=== PATIENT | male | born 1965 | race American Indian/Alaskan Native ===

== ENCOUNTER 2017-10-23 20:01 | Inpatient (IN) | payer MEDICAID ==
[2017-10-23 20:02] VITALS: BMI 31.5
--- NOTE | 2017-10-23 22:09 | C.PDOC ---
History Of Present Illness 52 year old male presents to the emergency department after being brought in by [facility]. Patient states that he feels as if he is withdrawing from heroin, which he last used at 9AM today. Patient is requesting detox. Chief Complaint (Nursing): Medical Clearance History Per: Patient, EMS History/Exam Limitations: no limitations Onset/Duration Of Symptoms: Hrs Current Symptoms Are (Timing): Still Present Past Medical History Reviewed: Historical Data, Nursing Documentation, Vital Signs Vital Signs: Last Vital Signs Temp 97.7 F 10/26/17 16:52 Pulse 80 10/26/17 16:52 Resp 18 10/26/17 16:52 BP 125/83 10/26/17 16:52 Pulse Ox 98 10/26/17 20:03 - Medical History PMH: Asthma, Hypercholesterolemia, Kidney Stones Denies: Chronic Kidney Disease Surgical History: No Surg Hx Family History: States: Unknown Family Hx - Social History Hx Tobacco Use: No Hx Alcohol Use: Yes Hx Substance Use: Yes - Immunization History Hx Tetanus Toxoid Vaccination: No Hx Influenza Vaccination: No Hx Pneumococcal Vaccination: No Review Of Systems Except As Marked, All Systems Reviewed And Found Negative. Neurological: Positive for: Other (under the influence) Physical Exam - Physical Exam Appears: Non-toxic, No Acute Distress Cardiovascular: Rhythm Regular Respiratory: Normal Breath Sounds Gastrointestinal/Abdominal: Normal Exam, Soft, No Tenderness ED Course And Treatment - Laboratory Results Result Diagrams: 10/23/17 21:51 10/23/17 21:51 O2 Sat by Pulse Oximetry: 98 (RA) Pulse Ox Interpretation: Normal Medical Decision Making Medical Decision Making: Plan: Alcohol Serum CMP CBC Glucose POC Urinalysis Disposition Discussed With DrElisa: Josef Chavez Doctor Will See Patient In The: Hospital Counseled Patient/Family Regarding: Diagnosis - Disposition Disposition: HOSPITALIZED Disposition Time: 04:30 Condition: STABLE - POA Present On Arrival: None - Clinical Impression Clinical Impression: Opiate addiction, Alcohol abuse - Scribe Statement The provider has reviewed the documentation as recorded by the Scribe (Yobany Rubio) Provider Attestation: All medical record entries made by the Scribe were at my direction and personally dictated by me. I have reviewed the chart and agree that the record accurately reflects my personal performance of the history, physical exam, medical decision making, and the department course for this patient. I have also personally directed, reviewed, and agree with the discharge instructions and disposition.
[2017-10-23 22:14] LABS: BASO % 0.5 % (0.0-2.0); EOS # 0.2 K/uL (0.0-0.7); EOS % 2.8 % (0.0-4.0); HEMOGLOBIN 11.9 g/dL (12.0-18.0); LYMPH # 0.7 K/uL (1.0-4.3); LYMPH % 9.7 % (20.0-40.0); MEAN CELL VOLUME 94.3 fL (80.0-94.0); MEAN CORPUSCULAR HEMOGLOBIN 32.2 pg (27.0-31.0); MEAN CORPUSCULAR HGB CONC 34.1 g/dL (33.0-37.0); MEAN PLATELET VOLUME 7.4 fL (7.2-11.7); MONO # 0.4 K/uL (0.0-0.8); MONO % 5.5 % (0.0-10.0); NEUT # 6.2 K/uL (1.8-7.0); NEUT % 81.5 % (50.0-75.0); PLATELET COUNT 231 K/uL (130-400); RBC 3.69 Mil/uL (4.40-5.90); RED CELL DISTRIBUTION WIDTH 13.9 % (11.5-14.5)
[2017-10-23 22:15] LABS: WHITE BLOOD COUNT 7.6 K/uL (4.8-10.8)
[2017-10-23 22:16] LABS: ALB/GLOB RATIO 1.1 (1.0-2.1); ALBUMIN 4.2 g/dL (3.5-5.0); ALT/SGPT 71 U/L (21-72); AST/SGOT 47 U/L (17-59); BLOOD UREA NITROGEN 16 mg/dL (9-20); CALCIUM 9.5 mg/dl (8.6-10.4); GFR AFRICAN-AMERICAN > 60; GFR NON-AFRICAN AMERICAN > 60
[2017-10-23 22:21] LABS: SQUAMOUS EPITHIAL < 1 /hpf (0-5); URINE BILIRUBIN NEGATIVE (NEGATIVE); URINE BLOOD NEGATIVE (NEGATIVE); URINE CLARITY Clear (Clear); URINE COLOR Straw (YELLOW); URINE GLUCOSE (UA) NORMAL (Normal); URINE LEUKOCYTE ESTERASE NEG Leu/uL (Negative); URINE PROTEIN NEGATIVE (NEGATIVE); URINE UROBILINOGEN NORMAL mg/dL (0.2-1.0)
[2017-10-23 22:33] LABS: BARBITURATES, UR NEGATIVE (NEGATIVE); PHENCYCLIDINE, UR NEGATIVE (NEGATIVE)
[2017-10-23 22:35] LABS: BENZODIAZEPINES, UR POSITIVE (NEGATIVE); OPIATES, UR POSITIVE (NEGATIVE)
[2017-10-23 22:54] LABS: EOSINOPHIL 2 % (0-4); MONOCYTE 5 % (0-10); NEUTROPHIL 84 % (50-75); TOTAL CELLS COUNTED 100
[2017-10-23 22:55] LABS: HYPOCHROMIC SLIGHT; LYMPHOCYTE 9 % (20-40); PLATELET ESTIMATE NORMAL (NORMAL)
--- NOTE | 2017-10-24 05:00 | PCM.BM ---
<Ewa Matt M - Last Filed: 10/24/17 04:59> Treatment Plan Problems - Problems identified on initial assessmt Ineffective Coping Skills Date Initiated: 10/24/17 Time Initiated: 05:00 Assessment reference: NA Status: Active Treatment assets and liabiliti Patient Assests: ADL independent Patient Liabilities: substance abuse - Milieu Protocol Maintain good personal hygiene: daily Encourage regular showers, daily Remind patient to perform daily oral care, other Assist patient to perform ADL's Maintain personal safety: every shift Educate patient to report safety concerns to staff, every shift Monitor environment for contraband/sharps Medication safety: Monitor for expected outcome, potential side effects: every shift, Assess barriers to learning: every shift, Assess readiness for medication education: every shift <Levi Villarreal M - Last Filed: 10/24/17 19:43> - Diagnosis (1) Opioid use disorder, severe, dependence Status: Acute Interventions: 10/24/17 19:43 10/24/17 16:56 Educate regarding risks, benefits, side effects and alternatives of medications * Use Motivational Interviewing for abstinence * Use CBT for relapse prevention * Medication management for withdrawal symptoms * Encourage medication assisted treatment (2) Alcohol use disorder, severe, dependence Status: Acute Interventions: 10/24/17 19:43 10/24/17 16:56 Educate regarding risks, benefits, side effects and alternatives of medications * Use Motivational Interviewing for abstinence * Use CBT for relapse prevention * Medication management for withdrawal symptoms * Encourage medication assisted treatment (3) Sedative, hypnotic or anxiolytic use disorder, moderate, in controlled environment Status: Acute Interventions: 10/24/17 19:43 10/24/17 16:56 Educate regarding risks, benefits, side effects and alternatives of medications * Use Motivational Interviewing for abstinence * Use CBT for relapse prevention * Medication management for withdrawal symptoms * Encourage medication assisted treatment
[2017-10-24] MEDS: Multiple Vitamins Tab PO SCH (11:35)
[2017-10-24] MEDS ORDERED: Buprenorphine Hydrochloride 2 mg SL ONE ×2 (17:06→18:30)
--- NOTE | 2017-10-24 19:54 | PCM.PSYCH ---
Initial Psychiatric Evaluation - Initial Psychiatric Evaluation Type of Admission: Voluntary Legal Status: Capacity Chief Complaint (in patient's own words): I need help for my substance use. History of Present Illness and Precipitating Events: Patient is a 52 years old, single, employed as a kitchen chef, -[place] male with no psychiatric history was admitted for the treatment of withdrawing from alcohol, heroin and Xanax. Alcohol: Started at 13 years of age, was drinking fifth of wine and 3, 24 ounces cans of beer daily. His last use was yesterday. His longest period of abstinence was 3 years from [id number]. He has history of 3 detox and one rehabilitation at [facility]. Next Heroin: Started at 14 years of age, increased gradually up to 10 bags daily. Currently he was using 10 bags daily, sniffing. Last used yesterday. Xanax: Started 1 years ago, using once take age of 2 mg daily. Last used yesterday. His urine drug screen was positive for cocaine. Patient denied. Patient has history of right leg surgery. He was arrested in the past for selling drugs. Patient was born in [place], has high school graduation. Patient is working as a kitchen chef. He is single and has 1 grown up daughter. He lives with his mother. His height is 5 feet 10 inches and weight is 205 pounds. Current Medications: Active Medications Generic Name Dose Route Start Last Admin Trade Name Freq PRN Reason Stop Dose Admin Albuterol 1 puff 10/24/17 04:52 Ventolin Hfa 90 Mcg/Actuation (8 G) INH RQ6 PRN Shortness of Breath Chlordiazepoxide 25 mg 10/24/17 08:32 10/24/17 08:47 Librium PO 25 mg Q6 PRN Administration Alcohol withdrawal Chlordiazepoxide 25 mg 10/24/17 12:00 10/24/17 17:01 Librium PO 10/28/17 11:59 25 mg Q6 AURA Administration Taper Clonidine HCl 0.1 mg 10/24/17 04:49 10/24/17 05:49 Catapres PO 0.1 mg Q8H PRN Administration Withdrawal Symptoms Dicyclomine HCl 20 mg 10/24/17 11:26 Bentyl PO Q6 PRN aBDOMINAL cRAMPS Folic Acid 1 mg 10/24/17 11:30 10/24/17 11:35 Folic Acid PO Not Given DAILY [facility] Gabapentin 400 mg 10/24/17 14:00 10/24/17 17:01 Neurontin PO 400 mg TID AURA Administration Hydroxyzine HCl 25 mg 10/24/17 04:49 10/24/17 05:49 Atarax PO 25 mg Q6H PRN Administration Agitation Multivitamins 1 tab 10/24/17 11:30 10/24/17 11:35 Hexavitamin PO Not Given DAILY [facility] Ondansetron HCl 4 mg 10/24/17 04:50 10/24/17 05:49 Zofran Odt PO 4 mg Q8H PRN Administration Nausea/Vomiting Thiamine HCl 100 mg 10/24/17 11:30 10/24/17 11:35 Vitamin B1 Tab PO Not Given DAILY AURA Trazodone HCl 50 mg 10/24/17 04:51 Desyrel PO HS PRN Insomnia Past Psychiatric History - Past Psychiatric History Previous Treatment History: Inpatient Prior Professional Help: History of 3 detox and one rehabilitation History of Abuse: None reported History of ETOH/Drug Use: See HPI History of Family Illness: Reported on of his brother uses alcohol, heroin and Xanax. Pertinent Medical Hx (Current Medical&Sleep Prob, Allergies): Allergies Allergy/AdvReac Type Severity Reaction Status Date / Time No Known Allergies Allergy Verified 10/23/17 20:25 Ibuprofen [Motrin Tab] 800 mg PO Q8H PRN #24 tab 06/29/16 Albuterol HFA [Ventolin HFA 90 mcg/actuation (8 g)] 1 puff IH Q4H PRN 07/16/16 Cyclobenzaprine [Flexeril] 5 mg PO Q8 PRN #20 tab 07/16/16 Naproxen 500 mg PO BID PRN #30 tab 07/16/16 Amoxicillin/Clavulanate [Augmentin 875 MG-125 MG] 1 tab PO BID #20 tab 07/21/16 Fluticasone Propionate [Flonase Allergy Relief] 1 spray NS DAILY #1 spray.susp 07/21/16 Ibuprofen [Motrin] 600 mg PO QID PRN #24 tab 07/21/16 Loratadine/Pseudoephedrine [Claritin-D 24 Hour Tablet] 1 each PO DAILY #7 tab.er.24h 07/21/16 Cephalexin [cephalexin] 500 mg PO QID #20 cap 12/26/16 Amoxicillin/Clavulanate [Augmentin 875 MG-125 MG] 1 tab PO BID #20 tab 05/13/17 Famotidine [Pepcid] 40 mg PO DAILY #15 tab 05/13/17 Loratadine/Pseudoephedrine [Claritin-D 24 Hour Tablet] 1 each PO DAILY #30 tab.er.24h 05/13/17 Asthma Hypercholesterinemia Review of Systems - Psychiatric Psychiatric: As Per [facility] Mental Status Examination - Personal Presentation Personal Presentation: Looks stated age - Affect Affect: Depressed - Motor Activity Motor Activity: Calm - Reliability in Providing Information Reliability in Providing Information: Fair - Speech Speech: Organized - Mood Mood: Depressed - Formal Thought Process Formal Thought Process: No Impairment - Hallucinations/Delusions Hallucinations: Other (None reported) Delusions: Other - Obsessions/Compulsions Obsessions: None Compulsions: None - Cognitive Functions Orientation: Person, Place, Situation, Time Sensorium: Alert Attention/Concentration: Attentive Abstract Thinking: [place] Estimate of Intelligence: Average Judgement: Intact, as evidence by: Insight regarding need for hospitalization Memory: Recent intact, as evidence by: 3/3 object recall, Remote intact, as evidenced by: Ability to recall historical events - Risk Risk: Withdrawal, Diminished functioning - Strength & Assets Inventory Strength & Assets Inventory: Education, Employment status, Cooperative - Limitations Limitations: Other DSM 5 DX - DSM 5 DSM 5 Diagnosis: Alcohol use disorder severe Opiate use disorder severe Anxiolytics use disorder moderate - Recommended/Plan of Treatment Treatment Recommendations and Plan of Treatment: Patient education. Supportive therapy. CBT for relapse prevention. [place] for abstinence. We'll start Librium detox protocol for alcohol and Xanax withdrawal symptoms. We'll start Subutex 4 heroin withdrawal symptoms. Other when necessary medications. Projected ELOS: 4-5 days Discharge Plan and Discharge Criteria: [facility] after discharge from the hospital. - Smoking Cessation Smoking Cessation Initiated: No Reason for not providing: Patient doesn't smoke cigarettes
[2017-10-25] MEDS: Multiple Vitamins Tab PO SCH (09:15)
[2017-10-25] MEDS: Buprenorphine Hydrochloride 2 mg SL SCH (09:15)
--- NOTE | 2017-10-25 12:49 | PCM.PYCHPN ---
Psychiatric Progress Note - Psychiatric Progress Note Patient seen today, length of contact: 16 minutes Patient Chief Complaint: "OK" Problems Identified/Issues Discussed: The pt is seen, chart reviewed, case discussed with staff. The pt is compliant with medications and reports no side-effects. Symptoms are improving but needs more time to stabilize. After care discussed, support and psychoeducation given. Medication Change: Yes (Detox changes daily) Medical Record Reviewed: Yes Mental Status Examination - Cognitive Function Orientation: Person, Place, Situation, Time Memory: Intact Attention: WNL Concentration: WNL Association: WNL Fund of Knowledge: WNL - Mood Mood: Depressed - Affect Affect: Broad, Depressed - Speech Speech: Appropriate - Formal Thought Process Formal Thought Process: No Impairment - Suicidal Ideation Suicidal Ideation: No - Homicidal Ideation Homicidal Ideation: No Goal/Treatment Plan - Goal/Treatment Plan Need for Continued Stay: Discharge may exacerbated symptoms, Severe functional impairment Progress Toward Problem(s) and Goals/Treatment Plan: Continue detox As needed medications Gabapentin for augmentation if needed All risks, benefits and alternatives of medications, including no medications, discussed and the patient understood and agreed. Attend groups and activities Supportive therapy and psychoeducation [place] for abstinence CBT for relapse prevention Encourage MAT Refer to rehab or IOP Attend self-help groups as well [place] for smoking cessation and patch if needed
[2017-10-25] MEDS ORDERED: Bacitracin Ointment 30 GM TUBE TOP PRN (15:55)
[2017-10-25] MEDS: Albuterol HFA 90 mcg/actuation (8 g) INH PRN (20:26)
[2017-10-26] MEDS: Multiple Vitamins Tab PO SCH (10:05)
[2017-10-26] MEDS: Buprenorphine Hydrochloride 2 mg SL SCH (10:06)
[2017-10-26] MEDS ORDERED: Magnesium Hydroxide Susp 30 ml UD PO ONE (10:45)
--- NOTE | 2017-10-26 11:21 | PCM.PYCHPN ---
Psychiatric Progress Note - Psychiatric Progress Note Patient seen today, length of contact: 15 min Patient Chief Complaint: "So so" Problems Identified/Issues Discussed: The pt is seen, chart reviewed, case discussed with staff. Support given, CBT and ND used briefly No new symptoms reported, improving slowly and needs more time No SEs from medications, risks discussed. After care discussed Medication Change: Yes (Detox changes daily) Medical Record Reviewed: Yes Mental Status Examination - Cognitive Function Orientation: Person, Place, Situation, Time Memory: Intact Attention: WNL Concentration: WNL Association: WNL Fund of Knowledge: WNL - Mood Mood: Depressed - Affect Affect: Broad, Depressed - Speech Speech: Appropriate - Formal Thought Process Formal Thought Process: No Impairment - Suicidal Ideation Suicidal Ideation: No - Homicidal Ideation Homicidal Ideation: No Goal/Treatment Plan - Goal/Treatment Plan Need for Continued Stay: Discharge may exacerbated symptoms, Severe functional impairment Progress Toward Problem(s) and Goals/Treatment Plan: Continue detox As needed medications Gabapentin for augmentation if needed All risks, benefits and alternatives of medications, including no medications, discussed and the patient understood and agreed. Attend groups and activities Supportive therapy and psychoeducation [place] for abstinence CBT for relapse prevention Encourage MAT Refer to rehab or IOP Attend self-help groups as well [place] for smoking cessation and patch if needed
[2017-10-27] MEDS: Albuterol HFA 90 mcg/actuation (8 g) INH PRN ×2 (03:28→23:26)
[2017-10-27] MEDS: Multiple Vitamins Tab PO SCH (09:24)
[2017-10-27] MEDS: Buprenorphine Hydrochloride 2 mg SL SCH (09:25)
--- NOTE | 2017-10-27 13:24 | PCM.PYCHPN ---
Psychiatric Progress Note - Psychiatric Progress Note Patient seen today, length of contact: 16 min Patient Chief Complaint: "So so" Problems Identified/Issues Discussed: The pt is seen, chart reviewed, case discussed with staff. Support given, CBT and [place] used briefly No new symptoms reported, improving slowly and needs more time No SEs from medications, risks discussed. After care discussed Medication Change: Yes (Detox changes daily) Medical Record Reviewed: Yes Mental Status Examination - Cognitive Function Orientation: Person, Place, Situation, Time Memory: Intact Attention: WNL Concentration: WNL Association: WNL Fund of Knowledge: WNL - Mood Mood: Depressed - Affect Affect: Broad, Depressed - Speech Speech: Appropriate - Formal Thought Process Formal Thought Process: No Impairment - Suicidal Ideation Suicidal Ideation: No - Homicidal Ideation Homicidal Ideation: No Goal/Treatment Plan - Goal/Treatment Plan Need for Continued Stay: Discharge may exacerbated symptoms, Severe functional impairment Progress Toward Problem(s) and Goals/Treatment Plan: Continue detox As needed medications Gabapentin for augmentation if needed All risks, benefits and alternatives of medications, including no medications, discussed and the patient understood and agreed. Attend groups and activities Supportive therapy and psychoeducation [place] for abstinence CBT for relapse prevention Encourage MAT Refer to rehab or IOP Attend self-help groups as well [place] for smoking cessation and patch if needed
[2017-10-28] MEDS: Multiple Vitamins Tab PO SCH (09:36)
[2017-10-28] MEDS: Buprenorphine Hydrochloride 2 mg SL SCH (09:36)
[2017-10-29 06:31] VITALS: RESP 20
--- NOTE | 2017-10-29 08:48 | PCM.PYCHDC ---
Mental Status Examination - Mental Status Examination Orientation: Person Discharge Summary - Discharge Note Consultations:: List each consultation separately and include: 1. Reason for request. 2. Findings. 3. Follow-up Summary of Hospital Course include:: 1. Description of specific treatment plan utilized for patients during their course of treatmen. 2. Summarize the time- course for resolution of acute symptoms and/or regressed behaviors. 3. Describe issues identified and worked on during hospitalization. 4. Describe medication utilized. 5. Describe medical problems identified and treated. 6. Reassessment of suicide risk Summary of Hospital Course: He will attend [facility] in [place] - Final Diagnosis (DSM 5) Condition upon Discharge: STABLE Disposition: HOME/ ROUTINE Follow-up Treatment Plan: Continue detox As needed medications Gabapentin for augmentation if needed All risks, benefits and alternatives of medications, including no medications, discussed and the patient understood and agreed. Attend groups and activities Supportive therapy and psychoeducation [place] for abstinence CBT for relapse prevention Encourage MAT Refer to rehab or IOP Attend self-help groups as well [place] for smoking cessation and patch if needed Prescriptions/Medication Reconciliation: Gabapentin [Neurontin] 400 mg PO TID #90 cap hydrOXYzine HCl [Atarax] 25 mg PO BID PRN #60 tab PRN Reason: Agitation traZODone [Desyrel] 100 mg PO HS #30 tab
[2017-10-29] MEDS: Multiple Vitamins Tab PO SCH (09:17)
[2017-10-29 09:46] VITALS: BP 124/84; PULSE 87; TEMP 97.9; O2SAT 97
== END 2017-10-29 10:15 | disposition home or self-care (01) | DRG 745 ==
LOC: C.ER 20:01 → C.7D 10-24 04:31
PROVIDERS: ADMIT Psychiatry & Neurology Psychiatry; ATTEND Psychiatry & Neurology Psychiatry
DX: F11.20 Opioid dependence, uncomplicated (principal); F19.10 Other psychoactive substance abuse, uncomplicated; F14.10 Cocaine abuse, uncomplicated; F10.20 Alcohol dependence, uncomplicated

== ENCOUNTER 2017-11-28 15:48 | Emergency (ER) | payer MEDICAID ==
[2017-11-28 15:48] VITALS: BMI 29.4
[2017-11-28 16:28] VITALS: O2SAT 99
--- NOTE | 2017-11-28 17:36 | C.PDOC ---
History Of Present Illness 52 y/o male presents to ED requesting detox from ETOH and heroin. Patient reports using daily, last using this morning and denies SI/HI, Hallucinations or any other complaints at this time. Time Seen by Provider: 11/28/17 16:51 Chief Complaint (Nursing): Substance Abuse History Per: Patient History/Exam Limitations: no limitations Onset/Duration Of Symptoms: Days Current Symptoms Are (Timing): Still Present Suicide/Self Injury Attempted (Context): None Modifying Factor(s): Alcohol, Other (heroin) Past Medical History Reviewed: Historical Data, Nursing Documentation, Vital Signs Vital Signs: Last Vital Signs Temp 98.9 F 11/28/17 18:30 Pulse 84 11/28/17 18:30 Resp 18 11/28/17 18:30 BP 122/82 11/28/17 18:30 Pulse Ox 99 11/28/17 18:30 - Medical History PMH: Asthma, Fractures (right tibia/fibula), Hypercholesterolemia, Kidney Stones , Chronic Kidney Disease, 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 Negative for: Anxiety, Suicidal ideation Physical Exam - Physical Exam Appears: Non-toxic, No Acute Distress Skin: Warm, Dry, No Rash Head: Atraumatic, Normacephalic Eye(s): bilateral: Normal Inspection Oral Mucosa: Moist Neck: Normal ROM, Supple Chest: Symmetrical, No Tenderness Cardiovascular: Rhythm Regular Respiratory: Normal Breath Sounds, No Rales, No Rhonchi, No Wheezing Gastrointestinal/Abdominal: Soft, No Tenderness, No Guarding, No Rebound Extremity: Normal ROM, No Swelling Neurological/Psych: Oriented x3, Normal Speech, Normal Cognition Gait: Steady ED Course And Treatment O2 Sat by Pulse Oximetry: 99 (RA) Pulse Ox Interpretation: Normal Medical Decision Making Medical Decision Making: Patient was instructed that there is no detox beds available at this time. Patient was placed on the waitiing list and giving outpatient follow up. Disposition - Disposition Referrals: [facility] [Outside] Disposition: HOME/ ROUTINE Disposition Time: 18:00 Condition: GOOD Additional Instructions: Follow up with the medical doctor within 1-2 days. Return if worsened. Prescriptions: Ondansetron ODT [Zofran ODT] 1 odt PO BID PRN #10 odt PRN Reason: Nausea/Vomiting Instructions: Drug Abuse and Drug Addiction (DC) Forms: [employer] (Albanian) - Clinical Impression Clinical Impression: Drug dependence - PA / TENTER FEEDER / Resident Statement MD/DO has reviewed & agrees with the documentation as recorded. - Scribe Statement The provider has reviewed the documentation as recorded by the Sarahibestephania Wahl All medical record entries made by the Sarahibestephania were at my direction and personally dictated by me. I have reviewed the chart and agree that the record accurately reflects my personal performance of the history, physical exam, medical decision making, and the department course for this patient. I have also personally directed, reviewed, and agree with the discharge instructions and disposition.
--- NOTE | 2017-11-28 17:59 | C.PDOC ---
Time Seen by Provider: 11/28/17 16:51 Chief Complaint (Nursing): Substance Abuse Past Medical History Vital Signs: Last Vital Signs Temp 99.3 F 11/28/17 16:25 Pulse 83 11/28/17 16:25 Resp 18 11/28/17 16:25 BP 118/89 11/28/17 16:25 Pulse Ox 99 11/28/17 16:25 - Medical History PMH: Asthma, Fractures (right tibia/fibula), Hypercholesterolemia, Kidney Stones , Chronic Kidney Disease, 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) Denies: Diabetes, Hepatitis, HIV, HTN, Sexually Transmitted Disease Family History: States: Unknown Family Hx - Social History Hx Tobacco Use: No Hx Alcohol Use: Yes Hx Substance Use: Yes (heroin last 11/26/17) - Immunization History Hx Tetanus Toxoid Vaccination: No Hx Influenza Vaccination: No Hx Pneumococcal Vaccination: No ED Course And Treatment O2 Sat by Pulse Oximetry: 99 Disposition - Disposition Forms: [employer] ([place] Citizen)
[2017-11-28 18:35] VITALS: BP 122/82; PULSE 84; RESP 18; TEMP 98.9
== END 2017-11-28 17:55 | disposition home or self-care (01) ==
LOC: C.ER 15:48
DX: F19.20 Other psychoactive substance dependence, uncomplicated (principal)

== ENCOUNTER 2018-02-22 14:21 | Emergency (ER) | payer MEDICAID ==
[2018-02-22 14:21] VITALS: BMI 29.4
[2018-02-22 14:31] VITALS: BP 106/70; PULSE 98; RESP 20; TEMP 97.6; O2SAT 95
[2018-02-22] MEDS ORDERED: Oxymetazoline 0.05% Nasal Spray (30 ml) NS STA (14:42)
--- NOTE | 2018-02-22 14:44 | C.PDOC ---
History Of Present Illness 52-year-old male presents to the ED for evaluation of runny nose and generalized body aches which began today. Patient notes he uses heroin daily, stating his last use was this morning. Patient is seeking heroin detox. He denies fever, chills, chest pain, shortness of breath, palpitations, vomiting, diarrhea. Time Seen by Provider: 02/22/18 14:34 Chief Complaint (Nursing): Cough, Cold, Congestion History Per: Patient History/Exam Limitations: None Onset/Duration Of Symptoms: Hrs Current Symptoms Are (Timing): Still Present Severity: Mild Past Medical History Reviewed: Historical Data, Nursing Documentation, Vital Signs Vital Signs: Last Vital Signs Temp 97.6 F 02/22/18 14:26 Pulse 98 H 02/22/18 14:26 Resp 20 02/22/18 14:26 BP 106/70 02/22/18 14:26 Pulse Ox 95 02/22/18 18:50 - Medical History PMH: Asthma, Fractures (right tibia/fibula), Hypercholesterolemia, Kidney Stones , Chronic Kidney Disease, 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) Surgical History: No Surg Hx Family History: States: No Known Family Hx - Social History Hx Tobacco Use: No Hx Alcohol Use: Yes Hx Substance Use: Yes - Immunization History Hx Tetanus Toxoid Vaccination: Yes Hx Influenza Vaccination: No Hx Pneumococcal Vaccination: Yes Review Of Systems ENT: Positive for: Nose Congestion Cardiovascular: Negative for: Chest Pain, Palpitations Respiratory: Negative for: Shortness of Breath Gastrointestinal: Negative for: Nausea, Vomiting, Abdominal Pain Musculoskeletal: Positive for: Other (generalized body aches ) Neurological: Negative for: Headache, Dizziness Psych: Positive for: Withdrawal (heroin ) Physical Exam - Physical Exam Appears: Well, Non-toxic, No Acute Distress Skin: Normal Color, Warm, Dry Head: Normacephalic Eye(s): bilateral: Normal Inspection Ear(s): Bilateral: Normal Nose: Other (rhinorrhea ) Oral Mucosa: Moist Throat: Normal, No Erythema, No Exudate Neck: Supple Cardiovascular: Rhythm Regular Respiratory: Normal Breath Sounds, No Rales, No Rhonchi, No Wheezing Extremity: Normal ROM, No Pedal Edema, No Calf Tenderness Pulses: Left Dorsalis Pedis: Normal, Right Dorsalis Pedis: Normal Neurological/Psych: Oriented x3, Other (bizarre affect ) Gait: Steady ED Course And Treatment O2 Sat by Pulse Oximetry: 95 (on RA) Pulse Ox Interpretation: Normal Progress Note: Patient given PO Motrin for body aches and Afrin nasal spray for rhinorrhea. Symptoms likely due to early heroin withdrawal. Discussed patient with crisis counselor, there are no current male detox beds available. Patient instructed to return to ED at later date or to call crisis for prescreening. He understands he should return to ED if symptoms worsen. Reevaluation Time: 14:55 Reassessment Condition: Improved Disposition Counseled Patient/Family Regarding: Diagnosis, Need For Followup, Rx Given - Disposition Referrals: Doc Vieyra MD [Staff Provider] - Disposition: HOME/ ROUTINE Disposition Time: 14:50 Condition: STABLE Additional Instructions: CALL DETOX TO BE PUT ON THEIR WAITING LIST AT RETURN TO ER IF SYMPTOMS WORSEN Prescriptions: Ibuprofen [Motrin Tab] 600 mg PO Q6 PRN #30 tab PRN Reason: fever/pain Instructions: Opioid Use Disorder Forms: General Discharge Instructions, [facility] (Pakistani), Work Excuse - Clinical Impression Clinical Impression: Rhinorrhea, Body aches, Heroin withdrawal - Scribe Statement The provider has reviewed the documentation as recorded by the Scribe (Romy Vieyra) Provider Attestation: All medical record entries made by the Scribe were at my direction and personally dictated by me. I have reviewed the chart and agree that the record accurately reflects my personal performance of the history, physical exam, medical decision making, and the department course for this patient. I have also personally directed, reviewed, and agree with the discharge instructions and disposition.
[2018-02-22] MEDS ORDERED: Oxymetazoline 0.05% Nasal Spray (30 ml) NS ONE (14:52)
== END 2018-02-22 15:02 | disposition home or self-care (01) ==
LOC: C.ER 14:21
DX: F11.23 Opioid dependence with withdrawal (principal); R52 Pain, unspecified; J34.89 Other specified disorders of nose and nasal sinuses; E78.00 Pure hypercholesterolemia, unspecified; N18.9 Chronic kidney disease, unspecified

== ENCOUNTER 2018-02-24 11:11 | Inpatient (IN) | payer MEDICAID ==
[2018-02-24 11:11] VITALS: BMI 29.4
[2018-02-24 11:43] LABS: BASO % 0.6 % (0.0-2.0); EOS # 0.1 K/uL (0.0-0.7); EOS % 1.9 % (0.0-4.0); HEMOGLOBIN 13.2 g/dL (12.0-18.0); LYMPH # 0.9 K/uL (1.0-4.3); MEAN CELL VOLUME 92.8 fL (80.0-94.0); MEAN CORPUSCULAR HEMOGLOBIN 31.7 pg (27.0-31.0); MEAN CORPUSCULAR HGB CONC 34.1 g/dL (33.0-37.0); MEAN PLATELET VOLUME 7.5 fL (7.2-11.7); MONO # 0.5 K/uL (0.0-0.8); MONO % 7.6 % (0.0-10.0); NEUT # 4.8 K/uL (1.8-7.0); NEUT % 75.9 % (50.0-75.0); RBC 4.17 Mil/uL (4.40-5.90); RED CELL DISTRIBUTION WIDTH 15.1 % (11.5-14.5); WHITE BLOOD COUNT 6.3 K/uL (4.8-10.8)
[2018-02-24 11:54] LABS: SQUAMOUS EPITHIAL < 1 /hpf (0-5); URINE BILIRUBIN NEGATIVE (NEGATIVE); URINE BLOOD NEGATIVE (NEGATIVE); URINE CLARITY Clear (Clear); URINE COLOR Yellow (YELLOW); URINE GLUCOSE (UA) NORMAL (Normal); URINE LEUKOCYTE ESTERASE NEG Leu/uL (Negative); URINE PROTEIN NEGATIVE (NEGATIVE); URINE UROBILINOGEN NORMAL mg/dL (0.2-1.0)
[2018-02-24 12:00] LABS: ALB/GLOB RATIO 1.1 (1.0-2.1); ALBUMIN 4.7 g/dL (3.5-5.0); ALT/SGPT 42 U/L (21-72); AST/SGOT 29 U/L (17-59); BLOOD UREA NITROGEN 10 mg/dL (9-20); GFR NON-AFRICAN AMERICAN > 60
[2018-02-24 12:11] LABS: BARBITURATES, UR NEGATIVE (NEGATIVE); PHENCYCLIDINE, UR NEGATIVE (NEGATIVE)
[2018-02-24 12:38] LABS: BENZODIAZEPINES, UR POSITIVE (NEGATIVE); OPIATES, UR POSITIVE (NEGATIVE)
--- NOTE | 2018-02-24 12:53 | C.PDOC ---
History Of Present Illness 52 years old male presents to ED requesting detox from heroin and alcohol. Patient states last use of alcohol was on Sunday and heroin intranasally yesterday. Patient also reports chills. Denies any other drug use. Time Seen by Provider: 02/24/18 11:19 Chief Complaint (Nursing): Psychiatric Evaluation History Per: Patient History/Exam Limitations: no limitations Onset/Duration Of Symptoms: Days Current Symptoms Are (Timing): Still Present Suicide/Self Injury Attempted (Context): None Modifying Factor(s): Alcohol, Crack (Heroin ) Associated Symptoms: denies: Suicidal Thoughts, Suicidal Plan Involuntary Hold By: None Recent travel outside of the [place]: No Past Medical History Reviewed: Historical Data, Nursing Documentation, Vital Signs Vital Signs: Last Vital Signs Temp 98.5 F 02/24/18 14:37 Pulse 81 02/24/18 14:37 Resp 20 02/24/18 14:37 BP 163/98 H 02/24/18 14:37 Pulse Ox 100 02/24/18 14:37 - Medical History PMH: Asthma, Fractures (right tibia/fibula), Hypercholesterolemia, Kidney Stones , Chronic Kidney Disease, Seizures (due to ETOH withdrawal) Family History: States: Unknown Family Hx - Social History Hx Tobacco Use: No Hx Alcohol Use: Yes Hx Substance Use: Yes - Immunization History Hx Tetanus Toxoid Vaccination: Yes Hx Influenza Vaccination: No Hx Pneumococcal Vaccination: Yes Review Of Systems Constitutional: Positive for: Chills, Other (Cold like symptoms ) Gastrointestinal: Negative for: Nausea, Vomiting, Diarrhea Skin: Negative for: Rash Neurological: Negative for: Weakness, Numbness Psych: Negative for: Suicidal ideation Physical Exam - Physical Exam Appears: Well, Non-toxic, No Acute Distress Skin: Normal Color, Warm, Dry, No Rash Head: Atraumatic, Normacephalic Eye(s): bilateral: Normal Inspection, EOMI Oral Mucosa: Moist Neck: Normal ROM Chest: Symmetrical Cardiovascular: Rhythm Regular, No Murmur Respiratory: Normal Breath Sounds, No Rales, No Rhonchi, No Wheezing Gastrointestinal/Abdominal: Bowel Sounds (Active ), Soft, No Tenderness, No Guarding Extremity: Bilateral: Atraumatic, Normal Color And Temperature, Normal ROM Neurological/Psych: Oriented x3, Normal Speech Gait: Steady ED Course And Treatment - Laboratory Results Result Diagrams: 02/24/18 11:37 02/24/18 11:37 O2 Sat by Pulse Oximetry: 96 (RA) Pulse Ox Interpretation: Normal Medical Decision Making Medical Decision Making: Patient requesting detox from heroin and alcohol. Labs ordered for medical clearance Labs reviewed with no acute findings. In my clinical judgment patient is medically cleared and stable for admission. PES contacted for evaluation. As per PES patient is to be admitted under Dr Chavez service for detox Disposition - Disposition Disposition: HOSPITALIZED Disposition Time: 13:20 Condition: STABLE - POA Present On Arrival: None - Clinical Impression Clinical Impression: Alcohol abuse, Opioid use disorder, severe, dependence - PA / TAR HEATER OPERATOR / Resident Statement MD/DO has reviewed & agrees with the documentation as recorded. - Scribe Statement The provider has reviewed the documentation as recorded by the Sarahibestephania Watts All medical record entries made by the Scribe were at my direction and personally dictated by me. I have reviewed the chart and agree that the record accurately reflects my personal performance of the history, physical exam, medical decision making, and the department course for this patient. I have also personally directed, reviewed, and agree with the discharge instructions and disposition. Decision To Admit - Pt Status Changed To: Hospital Disposition Of: Inpatient - Admit Certification Admit to Inpatient:: After my assessment, the patient will require hospitalization for at least two midnights. This is because of the severity of symptoms shown, intensity of services needed, and/or the medical risk in this patient being treated as an outpatient. - InPatient: Physician Admission Certification: I certify that this patient requires 2 or more midnights of care for the following reason:: Patient to be admitted for inpatient medical detox from opiate and alcohol abuse - . Bed Request Type: Detox Admitting Physician: Josef Chavez Patient Diagnosis: Alcohol abuse, Opioid use disorder, severe, dependence
[2018-02-24] MEDS ORDERED: Buprenorphine Hydrochloride 2 mg SL ONE ×2 (15:33→16:45)
--- NOTE | 2018-02-24 20:01 | PCM.BM ---
<LynseyHali - Last Filed: 02/24/18 20:00> Treatment Plan Problems - Problems identified on initial assessmt Potential for alcohol withdrawal Date Initiated: 02/24/18 Time Initiated: 20:01 Assessment reference: NA Status: Active potential for opiate withdrawal Date Initiated: 02/24/18 Time Initiated: 20:01 Assessment reference: NA Status: Active Treatment assets and liabiliti Patient Assests: ADL independent, negotiates basic needs, cognitively intact Patient Liabilities: substance abuse - Milieu Protocol Maintain good personal hygiene: daily Encourage regular showers, daily Remind patient to perform daily oral care, daily Assist patient to perform ADL's Conduct patient checks and document Observation sheet: Q15 minutes Maintain personal safety: every shift Educate patient to report safety concerns to staff, every shift Monitor environment for contraband/sharps Medication safety: Monitor for expected outcome, potential side effects: every shift, Assess barriers to learning: every shift, Assess readiness for medication education: every shift <Angelique Levine - Last Filed: 02/26/18 00:11> - Diagnosis (1) Opioid use disorder, severe, dependence Status: Acute Interventions: 02/26/18 00:12 * Assess 7x/week regarding severity of withdrawal * Educate regarding risks, benefits, side effects and alternatives of medications * Use Motivational Interviewing for abstinence * Use CBT for relapse prevention * Medication management for withdrawal symptoms * Encourage medication assisted treatment * (2) Alcohol use disorder, severe, dependence Status: Acute Interventions: 02/26/18 00:12 * Assess 7x/week regarding severity of withdrawal * Educate regarding risks, benefits, side effects and alternatives of medications * Use Motivational Interviewing for abstinence * Use CBT for relapse prevention * Medication management for withdrawal symptoms * Encourage medication assisted treatment * <Analisa Ramirez - Last Filed: 02/28/18 08:26> Family Contact Family involvement: Famliy/SO not involved - Goals for Treatment Patient goals for treatment: Complete detox and transition to an IOP. Discharge/Continuing Care - Education Needs Education Needs: Patient Medication, Patient Diagnosis/Disease Process, Patient Coping Skills, Patient Anger Management skills, Patient Placement options, Patient Community resources - Discharge Discharge Criteria: No longer exhibiting s/s of withdrawal, Reduction of target symptoms Discharge to:: Home, With Family - Treatment Team Participation Patient/Family/SO Statement: 02/28/18 08:26 "I'll try [facility]..." Discussed with Family/SO: No Was Patient/Family/SO present at Treatment Team Meeting: Yes
[2018-02-24] MEDS: Aluminum Hydroxide/Magnesium Hydroxide Susp (30 mL) PO PRN (20:37)
[2018-02-25] MEDS: Buprenorphine Hydrochloride 2 mg SL SCH (10:03)
[2018-02-25] MEDS: Multiple Vitamins Tab PO SCH (11:05)
--- NOTE | 2018-02-25 16:52 | PCM.PSYCH ---
Initial Psychiatric Evaluation - Initial Psychiatric Evaluation Type of Admission: Voluntary Legal Status: Capacity Chief Complaint (in patient's own words): "I am here for detox" History of Present Illness and Precipitating Events: Pt is a 52 year old male who is single, currently living with his sister. 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 The pt began drinking when he was 13 years old. Pt has been to detox at [facility] in 10/2017, detox at [facility] in 08/2017, and detox at [facility] in [facility] in 2016. Pt states the longest period of sobriety was 45 days after being at [facility]. pt relapsed due to losing his job and having to find a new job. Pt states his last use of heroin was on 3 days ago when he used 10-12 bags intranasally, which is his average daily use. pt said he also had a "sip" of methadone from his friend 3 days ago. He has never used methadone before. He is observed to be withdrawing Pt denies depressed mood, insomnia, feelings of guilt, fatigue, concentration problems, decreased appetite, anhedonia, and SI/HI. Pt denies manic episodes or feeling agitated. pt denies visual or auditory hallucinations, paranoia, Pt denies smoking cigarettes, cocaine, benzos, or any other drugs use. Psych Hx: Anxiety, Panic attacks Traumatic Hx: Unremarkable Family psych Hx: Brother has hx of heroin abuse Medical Hx: Asthma, Sciatica Legal Hx: hx of arrests and served 2 years in senior living Current Medications: Active Medications Generic Name Dose Route Start Last Admin Trade Name Freq PRN Reason Stop Dose Admin Al Hydrox/Mg Hydrox/Simethicone 30 ml 02/24/18 20:20 02/24/18 20:37 Maalox 30 Ml PO 30 ml Q8 PRN Administration Indigestion / Heartburn Buprenorphine HCl 8 mg 02/25/18 10:00 02/25/18 10:03 Subutex SL 03/01/18 09:59 8 mg DAILY AURA Administration Taper Chlordiazepoxide 25 mg 02/24/18 18:00 02/25/18 12:05 Librium PO 02/28/18 17:59 25 mg Q6 AURA Administration Taper Chlordiazepoxide 25 mg 02/24/18 15:33 02/24/18 20:36 Librium PO 25 mg Q4H PRN Administration Alcohol Withdrawal Dicyclomine HCl 10 mg 02/24/18 22:16 02/25/18 10:03 Bentyl PO 10 mg QID PRN Administration abdominal spasm Folic Acid 1 mg 02/25/18 10:00 02/25/18 10:03 Folic Acid PO 1 mg DAILY AURA Administration Ibuprofen 600 mg 02/24/18 22:18 02/24/18 22:28 Motrin Tab PO 600 mg Q8 PRN Administration Pain, moderate (4-7) Multivitamins 1 tab 02/25/18 10:00 02/25/18 11:05 Hexavitamin PO 1 tab DAILY AURA Administration Ondansetron HCl 4 mg 02/24/18 20:20 02/24/18 20:37 Zofran Tab PO 4 mg Q8 PRN Administration Nausea/Vomiting Thiamine HCl 100 mg 02/25/18 10:00 02/25/18 10:03 Vitamin B1 Tab PO 100 mg DAILY AURA Administration Trazodone HCl 50 mg 02/24/18 15:33 02/24/18 22:29 Desyrel PO 50 mg HS PRN Administration Insomnia Past Psychiatric History - Past Psychiatric History Previous Treatment History: None Pertinent Medical Hx (Current Medical&Sleep Prob, Allergies): Allergies Allergy/AdvReac Type Severity Reaction Status Date / Time No Known Allergies Allergy Verified 02/24/18 11:18 Albuterol HFA [Ventolin HFA 90 mcg/actuation (8 g)] 1 puff IH Q4H PRN 07/16/16 Naproxen 500 mg PO BID PRN #30 tab 07/16/16 Albuterol HFA [Ventolin HFA 90 mcg/actuation (8 g)] 1 puff INH RQ6 PRN inhaler 10/29/17 hydrOXYzine HCl [Atarax] 25 mg PO BID PRN #60 tab 10/29/17 Famotidine [Pepcid] 20 mg PO BID #30 tab 11/27/17 Ondansetron ODT [Zofran ODT] 4 mg PO TID PRN #10 odt 11/27/17 Ondansetron ODT [Zofran ODT] 1 odt PO BID PRN #10 odt 11/28/17 Ibuprofen [Motrin Tab] 600 mg PO Q6 PRN #30 tab 02/22/18 Review of Systems - Neurological Neurological: UNREMARKABLE - Psychiatric Psychiatric: Abnormal Sleep Pattern, Anxiety, Depression, Difficulty Concentrating, Irritability. absent: Anhedonia, Auditory Hallucinations, Hallucinations, Paranoia, Suicidal Ideation, Visual Hallucinations Mental Status Examination - Personal Presentation Personal Presentation: Looks stated age - Affect Affect: Constricted - Motor Activity Motor Activity: Calm - Reliability in Providing Information Reliability in Providing Information: Good - Speech Speech: Organized - Mood Mood: Anxious - Formal Thought Process Formal Thought Process: No Impairment - Obsessions/Compulsions Obsessions: No Compulsions: No - Cognitive Functions Orientation: Person, Place, Situation, Time Sensorium: Alert Attention/Concentration: Easily distracted Estimate of Intelligence: Average Judgement: Intact, as evidence by: Insight regarding need for hospitalization Memory: Recent intact, as evidence by: Ability to recall events of the day, Remote intact, as evidenced by: Abilit to recall sig. life events - Risk Risk: Withdrawal, Diminished functioning - Strength & Assets Inventory Strength & Assets Inventory: Cooperative - Limitations Limitations: Living alone DSM 5 DX - DSM 5 DSM 5 Diagnosis: EtOH withdrawal EtOH Use disorder, severe Opioid Use disorder, severe Opioid Withdrawal - Recommended/Plan of Treatment Treatment Recommendations and Plan of Treatment: Subutex for opioid withdrawal Librium for EtOH withdrawal As need medications All risks, benefits and alternatives of the meds discussed, and the pt agreed and understood. Attend groups and activities Individual therapy daily Psychoeducation and support daily Encourage compliance with meds and after care Refer to outpatient program Teach healthy lifestyle methods, i.e. diet, exercise, meditation 33 min Projected ELOS: 4 days
[2018-02-26] MEDS: Aluminum Hydroxide/Magnesium Hydroxide Susp (30 mL) PO PRN (02:54)
[2018-02-26] MEDS: Multiple Vitamins Tab PO SCH (09:42)
[2018-02-26] MEDS: Buprenorphine Hydrochloride 2 mg SL SCH (09:42)
[2018-02-26] MEDS: Pantoprazole 20 mg EC Tab PO SCH (13:13)
[2018-02-26] MEDS: Oxymetazoline 0.05% Nasal Spray (30 ml) NS SCH (18:31)
[2018-02-27] MEDS: Oxymetazoline 0.05% Nasal Spray (30 ml) NS SCH ×2 (07:30→19:01)
[2018-02-27] MEDS: Pantoprazole 20 mg EC Tab PO SCH (09:13)
[2018-02-27] MEDS: Buprenorphine Hydrochloride 2 mg SL SCH (09:13)
[2018-02-27] MEDS: Multiple Vitamins Tab PO SCH (09:13)
--- NOTE | 2018-02-27 16:01 | PCM.PYCHPN ---
Psychiatric Progress Note - Psychiatric Progress Note Patient seen today, length of contact: 16 min Patient Chief Complaint: "I am not well" Problems Identified/Issues Discussed: The pt is seen, chart reviewed, case discussed with staff. The pt is compliant with medications and reports no side-effects. Symptoms are improving but needs more time to stabilize. Pt attends groups and activities. Support given, psycho-education provided. After care discussed. Medication Change: Yes (detox changes daily) Medical Record Reviewed: Yes Mental Status Examination - Cognitive Function Orientation: Person, Place, Situation, Time Memory: Intact Attention: WNL Concentration: Poor Association: WNL Fund of Knowledge: WNL - Mood Mood: Anxious - Affect Affect: Constricted - Speech Speech: Appropriate - Formal Thought Process Formal Thought Process: No Impairment - Suicidal Ideation Suicidal Ideation: No - Homicidal Ideation Homicidal Ideation: No Goal/Treatment Plan - Goal/Treatment Plan Need for Continued Stay: Discharge may exacerbated symptoms, Severe functional impairment Progress Toward Problem(s) and Goals/Treatment Plan: Subutex for opioid withdrawal Librium for EtOH withdrawal As need medications All risks, benefits and alternatives of the meds discussed, and the pt agreed and understood. Attend groups and activities Individual therapy daily Psychoeducation and support daily Encourage compliance with meds and after care Refer to outpatient program Teach healthy lifestyle methods, i.e. diet, exercise, meditation
--- NOTE | 2018-02-27 16:02 | PCM.PYCHPN ---
Psychiatric Progress Note - Psychiatric Progress Note Patient seen today, length of contact: 15 min Patient Chief Complaint: "I am very anxious" Problems Identified/Issues Discussed: The pt is seen, chart reviewed, case discussed with staff. Support and psychoeducation given, CBT and AR used briefly No new symptoms reported, improving slowly and needs more time Anxiety mgt discussed, atarax recommended No SEs from medications, risks discussed. After care discussed Medication Change: Yes (detox changes daily) Medical Record Reviewed: Yes Mental Status Examination - Cognitive Function Orientation: Person, Place, Situation, Time Memory: Intact Attention: WNL Concentration: Poor Association: WNL Fund of Knowledge: WNL - Mood Mood: Anxious - Affect Affect: Constricted - Speech Speech: Appropriate - Formal Thought Process Formal Thought Process: No Impairment - Suicidal Ideation Suicidal Ideation: No - Homicidal Ideation Homicidal Ideation: No Goal/Treatment Plan - Goal/Treatment Plan Need for Continued Stay: Discharge may exacerbated symptoms, Severe functional impairment Progress Toward Problem(s) and Goals/Treatment Plan: Subutex for opioid withdrawal Librium for EtOH withdrawal As need medications All risks, benefits and alternatives of the meds discussed, and the pt agreed and understood. Attend groups and activities Individual therapy daily Psychoeducation and support daily Encourage compliance with meds and after care Refer to outpatient program Teach healthy lifestyle methods, i.e. diet, exercise, meditation
[2018-02-28] MEDS: Oxymetazoline 0.05% Nasal Spray (30 ml) NS SCH ×2 (07:48→19:00)
[2018-02-28] MEDS: Multiple Vitamins Tab PO SCH (09:13)
[2018-02-28] MEDS: Buprenorphine Hydrochloride 2 mg SL SCH (09:14)
[2018-02-28] MEDS: Pantoprazole 20 mg EC Tab PO SCH (09:16)
--- NOTE | 2018-02-28 13:36 | PCM.PYCHPN ---
Psychiatric Progress Note - Psychiatric Progress Note Patient seen today, length of contact: 15 min Patient Chief Complaint: "I am a little better" Problems Identified/Issues Discussed: The pt is seen, chart reviewed, case discussed with staff. Support and psychoeducation given, CBT and RI used briefly No new symptoms reported, improving slowly and needs more time No SEs from medications, risks discussed. After care discussed Medication Change: Yes (detox changes daily) Medical Record Reviewed: Yes Mental Status Examination - Cognitive Function Orientation: Person, Place, Situation, Time Memory: Intact Attention: WNL Concentration: Poor Association: WNL Fund of Knowledge: WNL - Mood Mood: Anxious - Affect Affect: Constricted - Speech Speech: Appropriate - Formal Thought Process Formal Thought Process: No Impairment - Suicidal Ideation Suicidal Ideation: No - Homicidal Ideation Homicidal Ideation: No Goal/Treatment Plan - Goal/Treatment Plan Need for Continued Stay: Discharge may exacerbated symptoms, Severe functional impairment Progress Toward Problem(s) and Goals/Treatment Plan: Subutex for opioid withdrawal Librium for EtOH withdrawal As need medications All risks, benefits and alternatives of the meds discussed, and the pt agreed and understood. Attend groups and activities Individual therapy daily Psychoeducation and support daily Encourage compliance with meds and after care Refer to outpatient program Teach healthy lifestyle methods, i.e. diet, exercise, meditation
[2018-03-01 04:07] VITALS: O2SAT 97
[2018-03-01 08:42] VITALS: BP 108/68; PULSE 82; RESP 20; TEMP 97.5
[2018-03-01] MEDS: Multiple Vitamins Tab PO SCH (09:15)
[2018-03-01] MEDS: Pantoprazole 20 mg EC Tab PO SCH (09:16)
--- NOTE | 2018-03-01 09:53 | PCM.PYCHDC ---
Mental Status Examination - Mental Status Examination Orientation: Person Discharge Summary - Discharge Note Consultations:: List each consultation separately and include: 1. Reason for request. 2. Findings. 3. Follow-up Summary of Hospital Course include:: 1. Description of specific treatment plan utilized for patients during their course of treatmen. 2. Summarize the time- course for resolution of acute symptoms and/or regressed behaviors. 3. Describe issues identified and worked on during hospitalization. 4. Describe medication utilized. 5. Describe medical problems identified and treated. 6. Reassessment of suicide risk Summary of Hospital Course: Pt is a 52 year old male who is single, currently living with his sister. pt has 1 child, 33y/o, and works for a [employer] company Pt presenting for EtOH detoxification and opioid withdrawal The pt has been drinking on average 1 pint of liquor and 1 pint of wine per day. The pt began drinking when he was 13 years old. Pt has been to detox at [facility] in 10/2017, detox at [facility] in 08/2017, and detox at [facility] in [facility] in 2016. Pt states the longest period of sobriety was 45 days after being at [facility]. pt relapsed due to losing his job and having to find a new job. Pt states his last use of heroin was on 3 days ago when he used 10-12 bags intranasally, which is his average daily use. pt said he also had a "sip" of methadone from his friend 3 days ago. He has never used methadone before. He is observed to be withdrawing Pt denies depressed mood, insomnia, feelings of guilt, fatigue, concentration problems, decreased appetite, anhedonia, and SI/HI. Pt denies manic episodes or feeling agitated. pt denies visual or auditory hallucinations, paranoia, Pt denies smoking cigarettes, cocaine, benzos, or any other drugs use. Psych Hx: Anxiety, Panic attacks Traumatic Hx: Unremarkable Family psych Hx: Brother has hx of heroin abuse Medical Hx: Asthma, Sciatica Legal Hx: hx of arrests and served 2 years in assisted [facility]. - Diagnosis (1) Opioid use disorder, severe, dependence Current Visit: Yes Status: Acute (2) Alcohol use disorder, severe, dependence Current Visit: No Status: Acute - Final Diagnosis (DSM 5) Condition upon Discharge: STABLE Disposition: HOME/ ROUTINE Follow-up Treatment Plan: Subutex for opioid withdrawal Librium for EtOH withdrawal As need medications All risks, benefits and alternatives of the meds discussed, and the pt agreed and understood. Attend groups and activities Individual therapy daily Psychoeducation and support daily Encourage compliance with meds and after care Refer to outpatient program Teach healthy lifestyle methods, i.e. diet, exercise, meditation Prescriptions/Medication Reconciliation: hydrOXYzine HCl [Atarax] 50 mg PO DAILY PRN #30 tab PRN Reason: Anxiety Pantoprazole [Protonix EC Tab] 20 mg PO DAILY #30 ect traZODone [Desyrel] 50 mg PO HS PRN #30 tab PRN Reason: Insomnia
== END 2018-03-01 10:56 | disposition home or self-care (01) | DRG 744 ==
LOC: C.ER 11:11 → C.7D 13:20
PROVIDERS: ADMIT Psychiatry & Neurology Psychiatry; ATTEND Psychiatry & Neurology Psychiatry
PROC: GZHZZZZ Group Psychotherapy (ICD-10-PCS; principal; 2018-02-24)
PROC: GZ56ZZZ Individual Psychotherapy, Supportive (ICD-10-PCS; 2018-02-24)
DX: F11.23 Opioid dependence with withdrawal (principal); N18.9 Chronic kidney disease, unspecified; J45.909 Unspecified asthma, uncomplicated; E78.00 Pure hypercholesterolemia, unspecified; F41.0 Panic disorder [episodic paroxysmal anxiety]; F10.10 Alcohol abuse, uncomplicated; F19.10 Other psychoactive substance abuse, uncomplicated

== ENCOUNTER 2018-07-05 01:08 | Emergency (ER) | payer MEDICAID ==
[2018-07-05 01:08] VITALS: BMI 29.4
[2018-07-05] MEDS ORDERED: Albuterol-Ipratrop 3 mg / 0.5 (3 ml) UD ONE ×2 (01:16→02:54)
--- NOTE | 2018-07-05 01:22 | C.PDOC ---
History Of Present Illness Patient presents to the ER with a complaint of SOB, wheezing, and some cough. States he was outside and ran out of his inhaler. He is currently speaking in complete sentences. Denies chest pain, fever or chills. Time Seen by Provider: 07/05/18 01:22 Chief Complaint (Nursing): Shortness Of Breath History Per: Patient History/Exam Limitations: no limitations Onset/Duration Of Symptoms: Hrs Current Symptoms Are (Timing): Still Present Initiating Event: Other (Outside in cold weather) Current Respiratory Medications: See Home Med List Severity: Moderate Pain Scale Rating Of: 4 Associated Symptoms: denies: Fever, Chills, Chest Pain Recent travel outside of the [place]: No Past Medical History Reviewed: Historical Data, Nursing Documentation, Vital Signs Vital Signs: Last Vital Signs Temp 97.8 F 07/05/18 01:17 Pulse 114 H 07/05/18 01:17 Resp 32 H 07/05/18 01:17 BP 140/93 H 07/05/18 01:17 Pulse Ox 92 L 07/05/18 01:17 - Medical History PMH: Asthma, Fractures (right tibia/fibula), Hypercholesterolemia, Kidney Stones, Chronic Kidney Disease, Seizures (due to ETOH withdrawal) Denies: Diabetes, Hepatitis, HIV, HTN, Sexually Transmitted Disease - [facility] Procedures GROUP PSYCHOTHERAPY (02/24/18) INDIVIDUAL PSYCHOTHERAPY, SUPPORTIVE (02/24/18) Family History: States: No Known Family Hx - Social History Hx Tobacco Use: No Hx Alcohol Use: Yes Hx Substance Use: No - Immunization History Hx Tetanus Toxoid Vaccination: Yes Hx Influenza Vaccination: No Hx Pneumococcal Vaccination: Yes Review Of Systems Constitutional: Negative for: Fever, Chills Cardiovascular: Negative for: Chest Pain, Palpitations Respiratory: Positive for: Cough, Shortness of Breath, Wheezing Gastrointestinal: Negative for: Nausea, Vomiting Neurological: Negative for: Weakness, Numbness Physical Exam - Physical Exam Appears: Non-toxic Skin: Warm, Dry Head: Normacephalic Eye(s): bilateral: Normal Inspection Oral Mucosa: Moist Chest: Symmetrical, No Tenderness Cardiovascular: Rhythm Regular Respiratory: No Rales, No Rhonchi, Wheezing (Mild diffuse inspiratory and expir atory) Gastrointestinal/Abdominal: Soft, No Tenderness Neurological/Psych: Oriented x3 Gait: Steady ED Course And Treatment O2 Sat by Pulse Oximetry: 92 (Room air) Pulse Ox Interpretation: Abnormal - Radiology CXR: Interpreted by Me, Viewed By Me CXR Interpretation: No: Infiltrates, Fracture, Pnemothorax Progress Note: Duoneb and solumedrol administered. Reevaluation Time: 05:04 Reassessment Condition: Improved Critical Care Time - Critical Care Note Total Time (in mins): 30 Documented critical care: time excludes all time spent performing seperately billable procedures. Disposition Counseled Patient/Family Regarding: Studies Performed, Diagnosis, Need For Followup, Rx Given - Disposition Referrals: [facility] at [facility] [Outside] Disposition: HOME/ ROUTINE Disposition Time: :22 Condition: FAIR Additional Instructions: Please return if symptoms recur Prescriptions: Albuterol HFA [Ventolin HFA 90 mcg/actuation (8 g)] 2 puff IH [id number] #1 puff Albuterol/Ipratropium [Duoneb 3 MG/3 Ml-0.5 MG/3 Ml 3 Ml] 1 ea IH QID PRN #50 neb PRN Reason: Wheezing Azithromycin [Zithromax Tri-Cristobal] 500 mg PO DAILY #3 tablet Prednisone [Deltasone] 20 mg PO DAILY #5 tablet Instructions: Asthma, Adult (DC) Forms: [facility] ([employer]), Work Excuse - Clinical Impression Clinical Impression: Asthma exacerbation - Scribe Statement The provider has reviewed the documentation as recorded by the Scribe Wong Ortiz All medical record entries made by the Scribe were at my direction and personally dictated by me. I have reviewed the chart and agree that the record accurately reflects my personal performance of the history, physical exam, medical decision making, and the department course for this patient. I have also personally directed, reviewed, and agree with the discharge instructions and disposition.
[2018-07-05] MEDS: Albuterol-Ipratrop 3 mg / 0.5 (3 ml) UD IH SCH (01:51)
[2018-07-05] MEDS ORDERED: Albuterol-Ipratrop 3 mg / 0.5 (3 ml) UD INH STA (02:53)
[2018-07-05 04:21] VITALS: PULSE 93; RESP 18
[2018-07-05 05:30] VITALS: BP 148/74; TEMP 98.4; O2SAT 95
--- NOTE | 2018-07-05 11:09 | RAD ---
HISTORY: [facility] COMPARISON: Chest x-ray performed 06/18/14 TECHNIQUE: Chest PA and lateral FINDINGS: LUNGS: No focal consolidation. Please note that chest x-ray has limited sensitivity for the detection of pulmonary masses. PLEURA: No significant pleural effusion identified. No definite pneumothorax . CARDIOVASCULAR: Heart size appears within normal limits. No atherosclerotic calcification present. OSSEOUS STRUCTURES: Degenerative changes. VISUALIZED UPPER ABDOMEN: Unremarkable. OTHER FINDINGS: None. IMPRESSION: No focal consolidation.
== END 2018-07-05 05:31 | disposition home or self-care (01) ==
LOC: C.ER 01:08
DX: J45.901 Unspecified asthma with (acute) exacerbation (principal); E78.00 Pure hypercholesterolemia, unspecified; N18.9 Chronic kidney disease, unspecified
CPT/HCPCS: 71046; 96374; 99285; J2930